=== PATIENT | female | born 1965 | race American Indian/Alaskan Native ===

== ENCOUNTER 2017-01-02 00:30 | Observation (INO) | payer MEDICAID ==
[2017-01-02 00:34] VITALS: BMI 30.1
[2017-01-02 00:39] VITALS: TEMP 98.4; O2SAT 100
[2017-01-02] MEDS ORDERED: DiphenhydrAMINE 50 mg/ml Inj IVP STA (01:04)
--- NOTE | 2017-01-02 01:19 | ED PDOC ---
Arrival/HPI - General Historian: Patient <Idalia Conley PA-C - Last Filed: 01/02/17 01:47> <Nura Sheets - Last Filed: 01/02/17 05:59> - General Chief Complaint: Allergic Reaction Time Seen by Provider: 01/02/17 00:51 - History of Present Illness Narrative History of Present Illness (Text): 01/02/17 01:15 Patient with past medical history of hypertension, reports acute onset of upper lip and tongue swelling that began prior to arrival in the Emergency Department , states that her symptoms started after taking Norvasc which patient takes she has been taking for the past 2 months. Patient also reports that she is currently on an antibiotic medication, does not recall the name, to treat a vaginal infection, states that she has had this antibiotic in the past and that this is not her first time taking it. Otherwise patient reports (-) rash, (-) throat swelling, (-) dyspnea, (-) cough, (-) wheezing, (-) abdominal pain, (-) nausea (-) vomiting. There has been no exposure to known allergens, reports not taking any new medications, no new food, no changes in her daily regimen. The patient has no history of prior allergic reactions. PMD Vikram (Idalia Conley PA-C) Past Medical History - Provider Review Nursing Documentation Reviewed: Yes - Cardiac Hx Hypertension: Yes - Psychiatric Hx Substance Use: No <Idalia Conley PA-C - Last Filed: 01/02/17 01:47> Family/Social History - Physician Review Nursing Documentation Reviewed: Yes Family/Social History: No Known Family HX Smoking Status: Never Smoked Hx Alcohol Use: Yes Frequency of alcohol use: Socially Hx Substance Use: No <Idalia Conley PA-C - Last Filed: 01/02/17 01:47> Allergies/Home Meds <Idalia Conley PA-C - Last Filed: 01/02/17 01:47> <Nura Sheets - Last Filed: 01/02/17 05:59> Allergies/Adverse Reactions: Allergies No Known Allergies Allergy (Verified 01/02/17 00:34) Review of Systems - Review of Systems Constitutional: Normal. absent: Fatigue, Weight Change, Fevers ENT: Normal, Other (lip / tongue swelling). absent: Hearing Changes, Tinnitus, Sore Throat Respiratory: Normal. absent: SOB, Cough, Sputum Cardiovascular: Normal. absent: Chest Pain, Palpitations, Edema Gastrointestinal: Normal. absent: Abdominal Pain, Stool Changes, Appetite Changes Musculoskeletal: Normal. absent: Arthralgias, Back Pain, Neck Pain Skin: Normal. absent: Rash, Pruritis, Skin Lesions <Idalia Conley PA-C - Last Filed: 01/02/17 01:47> Physical Exam <Idalia Conley PA-C - Last Filed: 01/02/17 01:47> <Nura Sheets - Last Filed: 01/02/17 05:59> - Physical Exam Narrative Physical Exam (Text): 01/02/17 01:19 GENERAL APPEARANCE: Patient is awake, alert, oriented x 3, in no acute distress. SKIN: (-) lesions, (-) rash. Otherwise (-) excoriations, (-) drainage, (-) crusting. HENT: (-) conjunctival injection, (-) chemosis. Oropharynx: clear (+) moderate upper lip swelling, (+) mild swelling of the tongue, (-) tonsillar exudates, (- ) erythema, (+) mild edema of the uvula. Airway: patent (-) stridor, (-) hoarseness. Mucous membranes moist. Nares: Patent (-) rhinorrhea. NECK: (-) lymphadenopathy, (-) tenderness. CARDIOVASCULAR: Normal rate and rhythm. (-) murmur, (-) gallop. CHEST: (-) rales, (-) wheezing, (-) dyspnea, (-) stridor. Breath sounds equal bilaterally. ABDOMEN: Soft. (-) tenderness, (-) distention, (-) HSM. NEURO: Mental status: Patient is alert, oriented, and with normal strength and tone. (Idalia Conley PA-C) Vital Signs Temp Pulse Resp BP Pulse Ox 01/02/17 04:47 82 17 142/77 100 01/02/17 00:38 98.4 F 87 18 154/94 H 100 Medical Decision Making <Idalia Conley PA-C - Last Filed: 01/02/17 01:47> <Nura Sheets - Last Filed: 01/02/17 05:59> ED Course and Treatment: 01/02/17 01:21 51 yo F with h/o HTN, reports sudden onset of lip and tongue swelling. Consider allergic reaction vs angioedema. Plans: -- IV access -- Labs -- community living instructor -- IV solumedrol / benadryl / pepcid -- Reassess and disposition Case endorsed to Dr. Sheets pending labs, re-evaluation and disposition. (Jarvis JUÁREZ,Idalia Harkins) - Lab Interpretations Lab Results: 01/02/17 01:20 01/02/17 01:20 Lab Results 01/02/17 01:20: Sodium 141, Potassium 3.3 L, Chloride 103, Carbon Dioxide 27, Anion Gap 14, BUN 14, Creatinine 0.7, Est GFR ( Amer) > 60, Est GFR (Non- Af Amer) > 60, Random Glucose 99, Calcium 8.9, Total Bilirubin 0.9, AST 51 H, ALT 39, Alkaline Phosphatase 109, Total Protein 7.9, Albumin 4.1, Globulin 3.8, Albumin/Globulin Ratio 1.1 01/02/17 01:20: WBC 6.5, RBC 3.84, Hgb 12.3, Hct 36.9, MCV 96.1, MCH 32.0, MCHC 33.3, RDW 13.2, Plt Count 339, MPV 9.7, Gran % 51.3, Lymph % (Auto) 34.0, [place] % (Auto) 5.6, Eos % (Auto) 8.8 H, Baso % (Auto) 0.3, Gran # 3.33, Lymph # 2.2, [place] # 0.4, Eos # 0.6, Baso # 0.02 - Medication Orders Current Medication Orders: Discontinued Medications Diphenhydramine HCl (Benadryl) 50 mg IVP STAT STA Stop: 01/02/17 01:05 Last Admin: 01/02/17 01:23 Dose: 50 mg Diphenhydramine HCl (Benadryl) 25 mg IVP ONCE ONE Stop: 01/02/17 02:48 Last Admin: 01/02/17 02:59 Dose: 25 mg Famotidine (Pepcid) 20 mg IVP STAT STA Stop: 01/02/17 01:05 Last Admin: 01/02/17 01:23 Dose: 20 mg Hydroxyzine Pamoate (Vistaril) 25 mg PO STAT STA PRN Reason: Protocol Stop: 01/02/17 02:48 Last Admin: 01/02/17 03:03 Dose: 25 mg Methylprednisolone (Solu-Medrol) 125 mg IV STAT STA Stop: 01/02/17 01:05 Last Admin: 01/02/17 01:23 Dose: 125 mg ED OBSERVATION Discharge: Yes Date of observation admission: 01/02/17 Time of observation admission: 03:00 <Nura Sheets - Last Filed: 01/02/17 05:59> - PA / MEDIA RELATIONS MANAGER / Resident Statement / has reviewed & agrees with the documentation as recorded. <Idalia Conley PA-C - Last Filed: 01/02/17 01:47> Disposition/Present on Arrival - Present on Arrival Any Indicators Present on Arrival: No History of DVT/PE: No History of Uncontrolled Diabetes: No Urinary Catheter: No History of Decub. Ulcer: No History Surgical Site Infection Following: None - Disposition Have Diagnosis and Disposition been Completed?: Yes Disposition Time: 02:00 <Idalia Conley PA-C - Last Filed: 01/02/17 01:47> - Present on Arrival Any Indicators Present on Arrival: No - Disposition Have Diagnosis and Disposition been Completed?: Yes Disposition Time: 05:59 <Nura Sheets - Last Filed: 01/02/17 05:59> - Disposition Diagnosis: Angioedema Disposition: HOME/ ROUTINE Patient Problems: Current Active Problems Problem Status Onset Angioedema Acute Condition: STABLE
[2017-01-02 01:36] LABS: ADD MANUAL DIFF? NO
[2017-01-02 01:38] LABS: BASO # 0.02 K/mm3 (0.0-2.0); BASO % 0.3 % (0.0-3.0); EOS # 0.6 (0.0-0.7); EOS % 8.8 % (1.5-5.0); GRAN # 3.33 (1.4-6.5); GRAN % 51.3 % (50.0-68.0); HEMATOCRIT 36.9 % (36.0-48.0); LYMPH # 2.2 (1.2-3.4); MEAN CELL VOLUME 96.1 fL (80.0-105.0); MEAN CORPUSCULAR HGB CONC 33.3 g/dl (31.0-37.0); MEAN PLATELET VOLUME 9.7 fl (7.0-11.0); MONO # 0.4 (0.1-0.6); MONO % 5.6 % (1.0-6.0); PLATELET COUNT 339 10^3/uL (120.0-450.0); RED CELL DISTRIBUTION WIDTH 13.2 % (11.5-14.5); WHITE BLOOD COUNT 6.5 10^3/ul (4.5-11.0)
[2017-01-02 02:04] LABS: ALB/GLOB RATIO 1.1 (1.1-1.8); ALKALINE PHOSPHATASE 109 U/L (38-133); ALT/SGPT 39 U/L (7-56); AST/SGOT 51 U/L (15-39); BILIRUBIN,TOTAL 0.9 mg/dL (0.2-1.3); BLOOD UREA NITROGEN 14 mg/dL (7-21); CALCIUM 8.9 mg/dL (8.4-10.5); CARBON DIOXIDE 27 mmol/L (21-33); CHLORIDE 103 mmol/L (98-107); GFR AFRICAN-AMERICAN > 60; GLUCOSE,RANDOM 99 mg/dL (70-110); POTASSIUM 3.3 mmol/L (3.6-5.0); SODIUM 141 mmol/L (132-148); TOTAL PROTEIN 7.9 g/dL (5.8-8.3)
[2017-01-02] MEDS ORDERED: DiphenhydrAMINE 50 mg/ml Inj IVP ONE (02:47)
[2017-01-02 04:49] VITALS: BP 142/77; PULSE 82; RESP 17
== END 2017-01-02 06:00 | disposition home or self-care (01) ==
LOC: ED 00:30 → EROBSV 02:10
PROVIDERS: ADMIT Emergency Medicine; ATTEND Emergency Medicine
DX: T78.3XXA Angioneurotic edema, initial encounter (principal)
CPT/HCPCS: 80053; 85025; 96374; 96375; 99283; G0378; J1200; J2930; Q0177

== ENCOUNTER 2017-01-03 00:50 | Observation (INO) | payer MEDICAID ==
[2017-01-03 01:01] VITALS: BMI 31.9
--- NOTE | 2017-01-03 01:11 | ED PDOC ---
Arrival/HPI - General Chief Complaint: Allergic Reaction Time Seen by Provider: 01/03/17 01:01 Historian: Patient - History of Present Illness Narrative History of Present Illness (Text): 01/03/17 01:08 Kimberly Sol is a 51 year old female, whose past medical history includes hypertension, who presents to the Emergency department complaining of chin swelling and sore throat tonight after taking Lisinopril. Patient was seen yesterday in the Emergency department for similar complaints after taking Norvasc. Patient denies throat/lip swelling, chest pain, shortness of breath, nausea, vomiting, diarrhea, or any other complaints. Time/Duration: Other (tonight) Symptom Onset: Gradual Symptom Course: Unchanged Activities at Onset: Rest, Light Context: Home Past Medical History - Provider Review Nursing Documentation Reviewed: Yes - Cardiac Hx Hypertension: Yes - Pulmonary Hx Respiratory Disorders: No - Neurological Hx Neurological Disorder: No - HEENT Hx HEENT Disorder: No - Renal Hx Renal Disorder: No - Endocrine/Metabolic Hx Endocrine Disorders: No - Hematological/Oncological Hx Blood Disorders: No - Integumentary Hx Dermatological Disorder: No - Musculoskeletal/Rheumatological Hx Musculoskeletal Disorders: No - Gastrointestinal Hx Gastrointestinal Disorders: No - Genitourinary/Gynecological Hx Genitourinary Disorders: No - Psychiatric Hx Psychophysiologic Disorder: No Hx Substance Use: No - Surgical History Other/Comment: vaginal fistula Family/Social History - Physician Review Nursing Documentation Reviewed: Yes Family/Social History: No Known Family HX Smoking Status: Never Smoked Hx Alcohol Use: Yes Hx Substance Use: No Allergies/Home Meds Allergies/Adverse Reactions: Allergies No Known Allergies Allergy (Verified 01/03/17 01:04) Review of Systems - Physician Review All systems were reviewed & negative as marked: Yes - Review of Systems Constitutional: Normal. absent: Fevers Eyes: Normal ENT: Sore Throat Respiratory: Normal. absent: SOB, Cough Cardiovascular: Normal. absent: Chest Pain Gastrointestinal: Normal. absent: Abdominal Pain, Diarrhea, Nausea Genitourinary Female: Normal. absent: Dysuria, Frequency, Hematuria, Urine Output Changes Musculoskeletal: Normal. absent: Back Pain, Neck Pain Skin: Other (+chin swelling) Neurological: Normal. absent: Headache, Dizziness Endocrine: Normal Hemo/Lymphatic: Normal Psychiatric: Normal Physical Exam Vital Signs Reviewed: Yes Vital Signs Temp Pulse Resp BP Pulse Ox 01/03/17 05:13 76 18 137/75 99 01/03/17 03:04 98.1 F 85 16 99 01/03/17 01:25 98.8 F 80 16 157/60 H 98 Temperature: Afebrile Blood Pressure: Normal Pulse: Regular Respiratory Rate: Normal Appearance: Positive for: Well-Appearing, Non-Toxic, Comfortable Pain Distress: None Mental Status: Positive for: Alert and Oriented X 3 - Systems Exam Head: Present: Normocephalic, Swelling (Mild swelling to chin) Pupils: Present: PERRL Extroacular Muscles: Present: EOMI Conjunctiva: Present: Normal Ears: Present: Normal, NORMAL TM, Normal Canal. No: Erythema Mouth: Present: Moist Mucous Membranes Pharnyx: Present: Normal. No: ERYTHEMA, EXUDATE, TONSILS ENLARGED, Peritonsilar Swelling, Uvular Deviation, Muffled/Hoarse Voice, Strider, Soft Palate/Uvular Edema Neck: Present: Normal Range of Motion Respiratory/Chest: Present: Clear to Auscultation, Good Air Exchange. No: Respiratory Distress, Accessory Muscle Use Cardiovascular: Present: Regular Rate and Rhythm Neurological: Present: GCS=15, CN II-XII Intact, Speech Normal Skin: Present: Warm, Dry, Normal Color. No: Rashes Psychiatric: Present: Alert, Oriented x 3, Normal Insight, Normal Concentration Medical Decision Making ED Course and Treatment: 01/03/17 01:08 Impression: 51 year old female complaining of sore throat and chin swelling after taking Lisinopril tonight. Differential Diagnosis include but are not limited to: allergic reaction Plan: -- Benadryl -- Solu-medrol -- Reassess and disposition Prior Visits: Notes and results from previous visits were reviewed. Progress Notes: - Medication Orders Current Medication Orders: Discontinued Medications Diphenhydramine HCl (Benadryl) 25 mg IVP ONCE ONE Stop: 01/03/17 01:16 Last Admin: 01/03/17 01:37 Dose: 25 mg Diphenhydramine HCl (Benadryl) 25 mg IVP ONCE ONE Stop: 01/03/17 03:55 Last Admin: 01/03/17 04:08 Dose: 25 mg Hydroxyzine HCl (Atarax) 25 mg PO STAT STA Stop: 01/03/17 03:55 Last Admin: 01/03/17 04:08 Dose: 25 mg Famotidine (Pepcid 20mg/50ml Premix) 20 mg in 50 mls @ 100 mls/hr IVPB STAT STA Stop: 01/03/17 02:50 Last Admin: 01/03/17 03:04 Dose: 100 mls/hr Methylprednisolone (Solu-Medrol) 60 mg IVP ONCE ONE Stop: 01/03/17 01:16 Last Admin: 01/03/17 01:37 Dose: 60 mg ED OBSERVATION Discharge: Yes Date of observation admission: 01/03/17 Time of observation admission: 01:30 - Observation admission statement Patient is being placed in observation because:: allergic reaction - Goals of Observation Goals of observation are:: improvement in condition - Progress Note Progress Note: 01/03/17 01:30 Pt resting comfortably, no new complaints. 01/03/17 03:30 Pt sleeping currently, in no acute distress. 01/03/17 04:54 Pt resting comfortably, no new complaints. 01/03/17 06:21 On re-evaluation, the patient feels better and is in no acute distress. I have discussed the results and plan with the patient, who expresses understanding. Patient in agreement with plan to discharged home. Patient is stable for discharge. Patient was instructed to follow up with physician/clinic in 1-2 days or return if symptoms worsen or new concerning symptoms arise. - Scribe Statement The provider has reviewed the documentation as recorded by the Christie Green Provider Attestation: All medical record entries made by the Christie were at my direction and personally dictated by me. I have reviewed the chart and agree that the record accurately reflects my personal performance of the history, physical exam, medical decision making, and the department course for this patient. I have also personally directed, reviewed, and agree with the discharge instructions and disposition. Disposition/Present on Arrival - Present on Arrival Any Indicators Present on Arrival: No History of DVT/PE: No History of Uncontrolled Diabetes: No Urinary Catheter: No History of Decub. Ulcer: No History Surgical Site Infection Following: None - Disposition Have Diagnosis and Disposition been Completed?: Yes Diagnosis: Angioedema Disposition Time: 06:32 Condition: GOOD
[2017-01-03] MEDS ORDERED: DiphenhydrAMINE 50 mg/ml Inj IVP ONE ×2 (01:15→03:54)
[2017-01-03] MEDS ORDERED: Famotidine 20mg/50ml 20 MG/50 ML BAG IVPB STA (02:21)
[2017-01-03 03:05] VITALS: TEMP 98.1
[2017-01-03 06:45] VITALS: BP 142/76; PULSE 79; RESP 17; O2SAT 100
== END 2017-01-03 06:32 | disposition home or self-care (01) ==
LOC: ED 00:50 → EROBSV 01:30
PROVIDERS: ADMIT Emergency Medicine; ATTEND Emergency Medicine
DX: T78.3XXA Angioneurotic edema, initial encounter (principal); I10 Essential (primary) hypertension
CPT/HCPCS: 96374; 96375; 96376; 99284; G0378; J1200; J2930